=== PATIENT | male | born 1935 | race Caucasian/White ===

== ENCOUNTER 2020-08-08 12:41 | Outpatient (CLI) | payer MEDICARE, BC | END 2020-08-08 23:59 | disposition home or self-care (01) | LOC: CFH 12:41 | PROVIDERS: ATTEND Internal Medicine Cardiovascular Disease | DX: I49.3 Ventricular premature depolarization (principal); R42 Dizziness and giddiness; R00.2 Palpitations; R03.0 Elevated blood-pressure reading, without diagnosis of hypertension | CPT/HCPCS: 78452; 93017; A9502 ==

== ENCOUNTER → 2020-08-13 | Outpatient (CLI) | payer MEDICARE, BC | END | disposition home or self-care (01) | LOC: CFH 10:35 | PROVIDERS: ATTEND Internal Medicine Cardiovascular Disease | DX: I08.3 Combined rheumatic disorders of mitral, aortic and tricuspid valves (principal); R42 Dizziness and giddiness; R03.0 Elevated blood-pressure reading, without diagnosis of hypertension; R00.2 Palpitations; I11.9 Hypertensive heart disease without heart failure | CPT/HCPCS: 93306 ==

== ENCOUNTER 2021-01-28 11:30 | Emergency (ER) | payer MEDICARE, BC ==
[~2021-01-28] VITALS: Ht 177.8 cm; Wt 89.5 kg
--- NOTE | 2021-01-28 13:46 | NUR ---
Per children's nursery assistant, pt was called in lobby without answer. Will attempt a second call shortly.
--- NOTE | 2021-01-28 14:00 | NUR ---
Second call with no answer in lobby with business systems technician search of restroom and just outside ER doors performed as well. acid operator notified.
[2021-01-28 15:05] VITALS: BP 137/61
== END 2021-01-28 15:07 | disposition home or self-care (01) ==
LOC: ED 14:40
DX: R60.0 Localized edema (principal); I49.3 Ventricular premature depolarization
CPT/HCPCS: 93005; 93970; 99284